=== PATIENT | male | born 1945 | race American Indian/Alaskan Native ===

== ENCOUNTER 2017-02-24 14:18 | Inpatient (IN) | payer MEDICARE ==
[2017-02-24 14:26] LABS: Basophils % (Auto) 0.8 % (0.0-1.8); Eosinophils % (Auto) 2.8 % (0.0-4.3); Hematocrit 45.6 % (35.5-45.6); Hemoglobin 15.5 gm/dl (11.8-15.2); Mean Corpuscular HGB Conc 34 % (32-34); Mean Corpuscular Hemoglobin 33 pg (28-32); Mean Corpuscular Volume 96 fl (84-94); Platelet Count 184 K/mm3 (140-440); Red Blood Count 4.77 M/mm3 (3.65-5.03); Red Cell Distribution Width 14.1 % (13.2-15.2); White Blood Count 6.4 K/mm3 (4.5-11.0)
[2017-02-24 14:34] LABS: INR 0.95 (0.87-1.13)
[2017-02-24 14:36] LABS: Anion Gap 19 mmol/L; BUN/Creatinine Ratio 18; Blood Urea Nitrogen 20 mg/dL (9-20); Calcium 8.5 mg/dL (8.4-10.2); Carbon Dioxide 25 mmol/L (22-30); Chloride 99.2 mmol/L (98-107); Glucose 183 mg/dL (75-100); Potassium 3.9 mmol/L (3.6-5.0); Sodium 139 mmol/L (137-145)
--- NOTE | 2017-02-24 14:40 | Cat Scan Report ---
FINAL REPORT EXAM: CT HEAD/BRAIN WO CON HISTORY: neuro deficits < 6hrs or sx present upon awakening TECHNIQUE: CT of the head was performed. No intravenous contrast was administered. PRIORS: None. FINDINGS: The left MCA appears slightly hyperdense which could represent acute MCA thrombus. Similarly the right posterior cerebral artery is hyperdense which could be thrombus. There is no hemorrhage, edema, mass effect or shift. There is moderate ischemic change in the white matter. There are old lacunar infarcts involving bilateral thalami and left basal ganglia. There are no abnormal extra-axial fluid collections. The ventricles are appropriate for brain volume. There is no skull fracture seen. There is partial ethmoid sinus opacification. There are small air-fluid levels in the maxillary sinus. Findings could reflect sinusitis. 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 Correlate clinically. Hyperdense vasculature can alternatively be seen in the setting of dehydration and hemoconcentration. Possible sinusitis. Findings were discussed with Dr. Hope on 02/24/2017 at 2:32 p.m. EST.
[2017-02-24] MEDS ORDERED: NORMODYNE IV ONE (14:41)
[2017-02-24] MEDS ORDERED: ASPIRIN PO ONE (14:46)
[2017-02-24] MEDS ORDERED: APRESOLINE IV ONE (16:15)
--- NOTE | 2017-02-24 16:25 | Emergency Department Report ---
ED Neuro Deficit HPI - General Chief Complaint: Neuro Symptoms/Deficit Stated Complaint: POSS STROKE Time Seen by Provider: 02/24/17 14:40 Source: patient, family, EMS Mode of arrival: Stretcher Limitations: No Limitations - History of Present Illness Initial Comments: Patient presents to this facility as a code stroke. He is quite clear that he was sitting on the porch at 10 AM when his symptoms began. Apparently the patient's became aware that 45 minutes prior to EMS actually show him. However the patient clearly did not tell his he was having symptoms up until this time. I verified this last known well time independently from the nurse who got the same information. -: hour(s) (now greater than 4-1/[address] completion) Location: left face, left arm, left leg Presenting Symptoms: Present: Weak/Paralyzed One Side History of same: No Place: home (states was sitting on the porch at 10 AM when this happened) Severity: moderate, severe Quality: weak, numb Improves With: none Worsens With: none On Anticoagulants: No Context: sudden onset Associated Symptoms: denies other symptoms Treatments Prior to Arrival: none - Related Data Allergies/Adverse Reactions: Allergies Allergy/AdvReac Type Severity Reaction Status Date / Time No Known Allergies Allergy Unverified 02/24/17 14:20 ED Review of Systems ROS: Stated complaint: POSS STROKE Other details as noted in HPI Constitutional: denies: chills, fever Eyes: denies: eye pain, eye discharge, vision change ENT: denies: ear pain, throat pain Respiratory: denies: cough, shortness of breath, wheezing Cardiovascular: denies: chest pain, palpitations Endocrine: no symptoms reported Gastrointestinal: denies: abdominal pain, nausea, diarrhea Genitourinary: denies: urgency, dysuria Musculoskeletal: denies: back pain, joint swelling, arthralgia Skin: denies: rash, lesions Neurological: as per HPI, weakness, numbness. denies: headache, paresthesias Psychiatric: denies: anxiety, depression Hematological/Lymphatic: denies: easy bleeding, easy bruising ED Past Medical Hx - Past Medical History Hx Hypertension: Yes (probably hasn't seen a physician in years) Additional medical history: High Cholestrol - Social History Smoking Status: Current Every Day Smoker Substance Use Type: Alcohol ED Neuro Physical Exam - General Limitations: No Limitations General appearance: alert, in no apparent distress Suspected Stroke: Yes - Head Head exam: Present: atraumatic, normocephalic - Eye Eye exam: Present: normal appearance. Absent: scleral icterus - ENT ENT exam: Present: normal exam, mucous membranes moist - Neck Neck exam: Present: normal inspection. Absent: tenderness, meningismus - Respiratory Respiratory exam: Present: normal lung sounds bilaterally. Absent: respiratory distress - Cardiovascular Cardiovascular Exam: Present: regular rate, normal rhythm. Absent: systolic murmur, diastolic murmur, rubs, gallop - GI/Abdominal GI/Abdominal exam: Present: soft, normal bowel sounds. Absent: distended, tenderness, guarding, rebound - Rectal Rectal exam: Present: deferred - Extremities Exam Extremities exam: Present: normal inspection - Back Exam Back exam: Present: normal inspection - Neurological Exam Neurological exam: Present: alert, oriented X3, motor sensory deficit (left hemiparesis upper extremity much greater than lower). Absent: CN II-XII intact (partial left facial paresis) - NIHSS Assessment Interval: Baseline 1a. Level of Consciousness: alert 1b. LOC Questions: answers correctly 1c. LOC Commands: performs tasks correctly 2. Best Gaze: normal 3. Visual: no visual loss 4. Facial Palsy: partial paralysis 5b. Motor Arm Right: no drift 5a. Motor Arm Left: drift 6a. Motor Leg Left: no drift (no drift but probably 4+ strength) 6b. Motor Leg Right: no drift 7. Limb Ataxia: absent 8. Sensory: mild/moderate sensory loss 9. Best Language: no aphasia 10. Dysarthria: mild/moderate dysarthria 11. Extinction/Inattention: no abnormality Total Score: 5 Stroke Severity: Moderate Stroke - Psychiatric Psychiatric exam: Present: normal affect, normal mood - Skin Skin exam: Present: warm, dry, intact, normal color. Absent: rash ED Course Vital Signs 02/24/17 02/24/17 02/24/17 14:25 14:48 15:00 Temperature 98.3 F Pulse Rate 83 78 73 Respiratory 18 Rate Blood Pressure 189/111 188/114 189/111 Blood Pressure [Left] O2 Sat by Pulse 99 97 Oximetry 02/24/17 02/24/17 02/24/17 15:15 15:29 15:30 Temperature Pulse Rate 72 78 80 Respiratory 14 18 16 Rate Blood Pressure 195/108 167/95 Blood Pressure 167/95 [Left] O2 Sat by Pulse 97 99 97 Oximetry 02/24/17 02/24/17 02/24/17 15:46 16:00 16:21 Temperature Pulse Rate 67 61 Respiratory 13 13 18 Rate Blood Pressure 182/98 167/108 Blood Pressure [Left] O2 Sat by Pulse 98 98 99 Oximetry - Reevaluation(s) Reevaluation #1: The patient is greater than 4.5 hours after the onset of his symptoms by the completion of his CT. He is outside the window for TPA. I discussed the patient's CT report with the radiologist. The CT findings are not correlating with his neurological presentation. He has some apparently non-correlating questionable hyperdensities. This is discussed with the hospitalist. The patient will be admitted for stroke workup to the hospitalist service. Additionally he has had his blood pressure gently titrated with small doses of labetalol. His blood pressure not been affected. He will be given a small dose of hydralazine. Further care per the hospitalist. 02/24/17 16:33 - Lab Data Result diagrams: 02/24/17 14:15 02/24/17 14:15 Lab Results 02/24/17 02/24/17 02/24/17 Range/Units 14:15 14:15 14:15 WBC 6.4 (4.5-11.0) K/mm3 RBC 4.77 (3.65-5.03) M/mm3 Hgb 15.5 H (11.8-15.2) gm/dl Hct 45.6 (35.5-45.6) % MCV 96 H (84-94) fl MCH 33 H (28-32) pg MCHC 34 (32-34) % RDW 14.1 (13.2-15.2) % Plt Count 184 (140-440) K/mm3 Lymph % (Auto) 50.6 H (13.4-35.0) % [place] % (Auto) 7.0 (0.0-7.3) % Eos % (Auto) 2.8 (0.0-4.3) % Baso % (Auto) 0.8 (0.0-1.8) % Lymph # 3.2 (1.2-5.4) K/mm3 [place] # 0.4 (0.0-0.8) K/mm3 Eos # 0.2 (0.0-0.4) K/mm3 Baso # 0.1 (0.0-0.1) K/mm3 Seg Neutrophils % 38.8 L (40.0-70.0) % Seg Neutrophils # 2.5 (1.8-7.7) K/mm3 PT 13.1 (12.2-14.9) Sec. INR 0.95 (0.87-1.13) APTT 33.0 (24.2-36.6) Sec. Thrombin Time (15.1-19.6) Sec. Sodium 139 (137-145) mmol/L Potassium 3.9 (3.6-5.0) mmol/L Chloride 99.2 (98-107) mmol/L Carbon Dioxide 25 (22-30) mmol/L Anion Gap 19 mmol/L BUN 20 (9-20) mg/dL Creatinine 1.1 (0.8-1.5) mg/dL Estimated GFR > 60 ml/min BUN/Creatinine Ratio 18 % Glucose 183 H (75-100) mg/dL Calcium 8.5 (8.4-10.2) mg/dL Total Bilirubin (0.1-1.2) mg/dL Direct Bilirubin (0-0.2) mg/dL Indirect Bilirubin mg/dL AST (5-40) units/L ALT (7-56) units/L Alkaline Phosphatase (35-129) units/L Troponin T < 0.010 (0.00-0.029) ng/mL NT-Pro-B Natriuret Pep (0-900) pg/mL Total Protein (6.3-8.2) g/dL Albumin (3.9-5) g/dL Albumin/Globulin Ratio % Urine Opiates Screen Urine Methadone Screen Ur Barbiturates Screen Ur Phencyclidine Scrn Ur Amphetamines Screen U Benzodiazepines Scrn Urine Cocaine Screen U Marijuana (THC) Screen Drugs of Abuse Note 02/24/17 02/24/17 02/24/17 Range/Units 14:15 14:15 16:17 WBC (4.5-11.0) K/mm3 RBC (3.65-5.03) M/mm3 Hgb (11.8-15.2) gm/dl Hct (35.5-45.6) % MCV (84-94) fl MCH (28-32) pg MCHC (32-34) % RDW (13.2-15.2) % Plt Count (140-440) K/mm3 Lymph % (Auto) (13.4-35.0) % [place] % (Auto) (0.0-7.3) % Eos % (Auto) (0.0-4.3) % Baso % (Auto) (0.0-1.8) % Lymph # (1.2-5.4) K/mm3 [place] # (0.0-0.8) K/mm3 Eos # (0.0-0.4) K/mm3 Baso # (0.0-0.1) K/mm3 Seg Neutrophils % (40.0-70.0) % Seg Neutrophils # (1.8-7.7) K/mm3 PT (12.2-14.9) Sec. INR (0.87-1.13) APTT (24.2-36.6) Sec. Thrombin Time 16.9 (15.1-19.6) Sec. Sodium (137-145) mmol/L Potassium (3.6-5.0) mmol/L Chloride (98-107) mmol/L Carbon Dioxide (22-30) mmol/L Anion Gap mmol/L BUN (9-20) mg/dL Creatinine (0.8-1.5) mg/dL Estimated GFR ml/min BUN/Creatinine Ratio % Glucose (75-100) mg/dL Calcium (8.4-10.2) mg/dL Total Bilirubin 0.30 (0.1-1.2) mg/dL Direct Bilirubin < 0.2 (0-0.2) mg/dL Indirect Bilirubin 0.1 mg/dL AST 22 (5-40) units/L ALT 25 (7-56) units/L Alkaline Phosphatase 89 (35-129) units/L Troponin T (0.00-0.029) ng/mL NT-Pro-B Natriuret Pep 13.01 (0-900) pg/mL Total Protein 7.8 (6.3-8.2) g/dL Albumin 4.3 (3.9-5) g/dL Albumin/Globulin Ratio 1.2 % Urine Opiates Screen Presumptive negative Urine Methadone Screen Presumptive negative Ur Barbiturates Screen Presumptive negative Ur Phencyclidine Scrn Presumptive negative Ur Amphetamines Screen Presumptive negative U Benzodiazepines Scrn Presumptive negative Urine Cocaine Screen Presumptive negative U Marijuana (THC) Screen Presumptive negative Drugs of Abuse Note Disclamer - EKG Data -: EKG Interpreted by Me EKG shows normal: sinus rhythm Rate: normal Interpretation: other (left anterior fascicular block branch block thereby bifascicular block likely associated repolarization abnormality.) - Radiology Data interpreted by me: CT of the head showed possible hyperdensity in the left MCA and 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 There is no acute parenchymal or chronic parenchymal disease. I believe these to be non-correlating findings. A chest x-ray showed some central venous fullness. Critical Care Time: Yes Critical care time in (mins) excluding proc time.: 60 Critical care attestation.: If time is entered above; I have spent that time in minutes in the direct care of this critically ill patient, excluding procedure time. ED Disposition Clinical Impression: Uncontrolled hypertension, Bifascicular block CVA (cerebral vascular accident) Qualifiers: CVA mechanism: unspecified Qualified Code(s): I63.9 - Cerebral infarction, unspecified Disposition: DC-09 OP ADMIT IP TO THIS HOSP Is pt being admited?: Yes Does the pt Need Aspirin: Yes Condition: Stable Instructions: Hypertension (ED) Time of Disposition: 17:04
[2017-02-24] MEDS ORDERED: REGLAN PO PRN (16:28)
[2017-02-24] MEDS ORDERED: MILK OF MAGNESIA PO PRN (16:28)
[2017-02-24] MEDS ORDERED: PHENERGAN PR PRN (16:28)
[2017-02-24] MEDS ORDERED: ZOFRAN IV PRN (16:28)
[2017-02-24] MEDS ORDERED: DULCOLAX PR PRN (16:28)
[2017-02-24] MEDS ORDERED: SODIUM CHLORIDE FLUSH SYRINGE 10 ML IV PRN (16:28)
--- NOTE | 2017-02-24 16:28 | History and Physical Report ---
History of Present Illness Chief complaint: Im weak on my left side doctor History of present illness: 71 YO Male with HLD, Nicotine Dependence presents to ED for evaluation. Pt states that he was sitting on his porch this morning when he experienced weakness on his left side. Pt states that he thought that he would be OK and did not tell anyone about his symptoms. After several hours, patient informed his of symptoms. EMS was subsequently called, and patient was found to have symptoms consistent with acute stroke. Pt transported to [facility] for evaluation. Pt seen and evaluated in ED and found to have facial droop, left hemiparesis. Pt was outside therapeutic window for TPA. Pt treated I[facility] stroke protocol and admitted to telemetry. Pt treated [facility] DAPT. No reports of fever, chills, trauma, CP, palpitations, leg swelling/calf pain, prolonged travel/ immobility, Individual/family history of DVT/PE, Vertigo, Migraine, Skin rash, neck pain, or recent ill contacts. Past History Past Medical History: hyperlipidemia, other (Nicotine Dependence) Past Surgical History: No surgical history, Other (reviewed) Social history: , lives with family, smoking. denies: alcohol abuse, prescription drug abuse, IV drug use Family history: hypertension Medications and Allergies Allergies Allergy/AdvReac Type Severity Reaction Status Date / Time No Known Allergies Allergy Unverified 02/24/17 14:20 Review of Systems Constitutional: no weight loss, no weight gain, no fever, no chills Ears, nose, mouth and throat: no ear pain, no ear discharge, no tinnitis, no decreased hearing, no nose pain, no nasal congestion Cardiovascular: no chest pain, no orthopnea, no palpitations, no rapid/ irregular heart beat, no edema, no syncope Respiratory: no cough, no cough with sputum, no excessive sputum, no hemoptysis Gastrointestinal: no abdominal pain, no nausea, no vomiting, no diarrhea, no constipation Genitourinary Male: no dysuria, no flank pain, no discharge, no urinary frequency, no urinary hesitancy Rectal: no pain, no incontinence, no bleeding Musculoskeletal: no neck stiffness, no neck pain, no shooting arm pain, no arm numbness/tingling, no low back pain Integumentary: no rash, no pruritis, no redness, no sores, no wounds Neurological: transient paralysis, weakness, change in speech, motor disturbance , no head injury, no paralysis, no parathesias, no numbness, no vertigo, no headaches, no migraines Psychiatric: no anxiety, no memory loss, no change in sleep habits, no sleep disturbances, no insomnia, no hypersomnia, no change in appetite Endocrine: no cold intolerance, no heat intolerance, no polyphagia, no excessive thirst, no polydipsia, no polyuria Hematologic/Lymphatic: no easy bruising, no easy bleeding Allergic/Immunologic: no urticaria, no allergic rhinitis, no wheezing Exam - Constitutional Vitals: Temp Pulse Resp BP Pulse Ox 98.3 F 61 18 167/108 99 02/24/17 14:25 02/24/17 16:00 02/24/17 16:21 02/24/17 16:00 02/24/17 16:21 General appearance: Present: mild distress - EENT Eyes: Present: PERRL ENT: hearing intact, clear oral mucosa - Neck Neck: Present: supple, normal ROM - Respiratory Respiratory effort: normal Respiratory: bilateral: CTA - Cardiovascular Heart Sounds: Present: S1 & S2. Absent: rub, click - Extremities Extremities: pulses symmetrical, No edema Peripheral Pulses: within normal limits - Abdominal General gastrointestinal: Present: soft, non-tender, non-distended, normal bowel sounds Male genitourinary: Present: normal - Rectal Rectal Exam: normal exam-external/orifice - Integumentary Integumentary: Present: clear, warm, dry - Musculoskeletal Musculoskeletal: left sided weakness - Psychiatric Psychiatric: appropriate mood/affect, intact judgment & insight - Neurologic Neurologic: focal deficits, no gait normal Results - Labs CBC & Chem 7: 02/24/17 14:15 02/24/17 14:15 Labs: Abnormal lab results 02/24/17 02/24/17 Range/Units 14:15 14:15 Hgb 15.5 H (11.8-15.2) gm/dl MCV 96 H (84-94) fl MCH 33 H (28-32) pg Lymph % (Auto) 50.6 H (13.4-35.0) % Seg Neutrophils % 38.8 L (40.0-70.0) % Glucose 183 H (75-100) mg/dL Assessment and Plan - Patient Problems (1) CVA (cerebral vascular accident) Current Visit: Yes Status: Acute Qualifiers: CVA mechanism: unspecified Qualified Code(s): I63.9 - Cerebral infarction, unspecified Plan to address problem: Stroke Protocol: CT head, MRI Brain, MRA Brain, Echo, Carotid Doppler, DAPT, Lipid panel, Statin therapy, PT/OT, Speech Therapy, Swallow evaluation, (2) Left hemiparesis Current Visit: Yes Status: Acute Plan to address problem: PT consulted, (3) Nicotine dependence Current Visit: Yes Status: Acute Plan to address problem: Pt counseled, Pt refused to pick quit date. (4) HLD (hyperlipidemia) Current Visit: Yes Status: Acute Plan to address problem: Lipid panel, statin therapy as indicated, (5) Accelerated hypertension Current Visit: Yes Status: Acute Plan to address problem: Permissive hypertension overnight, secondary to acute CVA. (6) DVT prophylaxis Current Visit: Yes Status: Acute
[2017-02-24 16:34] LABS: Urine Drugs of Abuse Note Disclamer
[2017-02-24] MEDS ORDERED: MOTRIN ONE (16:37)
--- NOTE | 2017-02-24 16:46 | XRay Report ---
FINAL REPORT EXAM: XR CHEST 1V AP HISTORY: hypertension TECHNIQUE: upright single view chest PRIORS: None. FINDINGS: Cardiac and mediastinal contours are unremarkable. No focal pulmonary infiltrate is identified. No pleural fluid collection seen. Pulmonary vasculature is unremarkable. IMPRESSION: Negative single-view chest
[2017-02-24 16:50] LABS: Alanine Aminotransferase 25 units/L (7-56); Albumin 4.3 g/dL (3.9-5); Albumin/Globulin Ratio 1.2 %; Alkaline Phosphatase 89 units/L (35-129); Total Protein 7.8 g/dL (6.3-8.2)
[2017-02-24 16:52] LABS: Bilirubin,Direct < 0.2 mg/dL (0-0.2); Bilirubin,Indirect 0.1 mg/dL
[2017-02-24 17:01] LABS: Bacteria,Urine 1+ /HPF (Negative); Bilirubin,Urine NEG (Negative); Blood,Urine NEG (Negative); Ketones,Urine NEG (Negative); Leukocyte Esterase,Urine NEG (Negative); Mucus,Urine FEW /HPF; Nitrite,Urine NEG (Negative); Protein,Urine <15 mg/dL mg/dL (Negative); Urobilinogen,Urine < 2.0 mg/dL (<2.0); WBC,Urine < 1.0 /HPF (0.0-6.0)
[2017-02-24] MEDS ORDERED: MORPHINE IV ONE (18:08)
[2017-02-24] MEDS ORDERED: PERCOCET 5/325 PO PRN (18:09)
[2017-02-24] MEDS ORDERED: MORPHINE ONE (18:11)
[2017-02-25] MEDS ORDERED: APRESOLINE IV ONE (09:00)
[2017-02-25] MEDS: PLAVIX PO SCH (09:11)
--- NOTE | 2017-02-25 09:13 | Progress Note ---
Assessment and Plan Assessment and plan: --Acute CVA Patient's symptoms significantly improved, follow neuro workup Physical therapy occupational therapy speech therapy, rehabilitation and as needed --CVA with left weakness Mild improvement, physical therapy occupational therapy, follow neuro workup --Malignant hypertension; closely monitor blood pressures Permissive hypertension per CVA protocol, when necessary hydralazine --Dyslipidemia; continue statin, low cholesterol diet --Ongoing tobacco use; smoking cessation counseling done advised nicotine patch if needed --DVT prophylaxis with Lovenox Follow neuro workup, consider neurology evaluation if needed Plan of care discussed with the patient and the family member at the bedside History Interval history: Patient seen and examined medical records reviewed Admitted with CVA-like symptoms Neuro workup is in progress Patient alert awake oriented 3 not in acute distress Hospitalist Physical - Constitutional Vitals: Temp Pulse Resp BP Pulse Ox 98.4 F 76 20 209/106 95 02/25/17 08:49 02/25/17 08:49 02/25/17 08:49 02/25/17 08:49 02/25/17 08:49 General appearance: Present: no acute distress, well-nourished, other - EENT Eyes: Present: PERRL, EOM intact - Neck Neck: Present: supple, normal ROM - Respiratory Respiratory effort: normal Respiratory: bilateral: diminished, negative: rales, rhonchi, wheezing - Cardiovascular Rhythm: regular Heart Sounds: Present: S1 & S2 - Extremities Extremities: no ischemia, No edema - Abdominal General gastrointestinal: soft, non-tender, non-distended, normal bowel sounds - Integumentary Integumentary: Present: clear, warm - Psychiatric Psychiatric: appropriate mood/affect, cooperative - Neurologic Neurologic: other (Gen. weakness) Results - Labs CBC & Chem 7: 02/24/17 14:15 02/24/17 14:15 Labs: Laboratory Last Values WBC 6.4 K/mm3 (4.5-11.0) 02/24/17 14:15 RBC 4.77 M/mm3 (3.65-5.03) 02/24/17 14:15 Hgb 15.5 gm/dl (11.8-15.2) H 02/24/17 14:15 Hct 45.6 % (35.5-45.6) 02/24/17 14:15 MCV 96 fl (84-94) H 02/24/17 14:15 MCH 33 pg (28-32) H 02/24/17 14:15 MCHC 34 % (32-34) 02/24/17 14:15 RDW 14.1 % (13.2-15.2) 02/24/17 14:15 Plt Count 184 K/mm3 (140-440) 02/24/17 14:15 Lymph % (Auto) 50.6 % (13.4-35.0) H 02/24/17 14:15 [place] % (Auto) 7.0 % (0.0-7.3) 02/24/17 14:15 Eos % (Auto) 2.8 % (0.0-4.3) 02/24/17 14:15 Baso % (Auto) 0.8 % (0.0-1.8) 02/24/17 14:15 Lymph # 3.2 K/mm3 (1.2-5.4) 02/24/17 14:15 [place] # 0.4 K/mm3 (0.0-0.8) 02/24/17 14:15 Eos # 0.2 K/mm3 (0.0-0.4) 02/24/17 14:15 Baso # 0.1 K/mm3 (0.0-0.1) 02/24/17 14:15 Seg Neutrophils % 38.8 % (40.0-70.0) L 02/24/17 14:15 Seg Neutrophils # 2.5 K/mm3 (1.8-7.7) 02/24/17 14:15 PT 13.1 Sec. (12.2-14.9) 02/24/17 14:15 INR 0.95 (0.87-1.13) 02/24/17 14:15 APTT 33.0 Sec. (24.2-36.6) 02/24/17 14:15 Thrombin Time 16.9 Sec. (15.1-19.6) 02/24/17 14:15 Sodium 139 mmol/L (137-145) 02/24/17 14:15 Potassium 3.9 mmol/L (3.6-5.0) 02/24/17 14:15 Chloride 99.2 mmol/L (98-107) 02/24/17 14:15 Carbon Dioxide 25 mmol/L (22-30) 02/24/17 14:15 Anion Gap 19 mmol/L 02/24/17 14:15 BUN 20 mg/dL (9-20) 02/24/17 14:15 Creatinine 1.1 mg/dL (0.8-1.5) 02/24/17 14:15 Estimated GFR > 60 ml/min 02/24/17 14:15 BUN/Creatinine Ratio 18 % 02/24/17 14:15 Glucose 183 mg/dL (75-100) H 02/24/17 14:15 POC Glucose 101 (70-105) 02/24/17 21:37 Calcium 8.5 mg/dL (8.4-10.2) 02/24/17 14:15 Total Bilirubin 0.30 mg/dL (0.1-1.2) 02/24/17 14:15 Direct Bilirubin < 0.2 mg/dL (0-0.2) 02/24/17 14:15 Indirect Bilirubin 0.1 mg/dL 02/24/17 14:15 AST 22 units/L (5-40) 02/24/17 14:15 ALT 25 units/L (7-56) 02/24/17 14:15 Alkaline Phosphatase 89 units/L (35-129) 02/24/17 14:15 Troponin T < 0.010 ng/mL (0.00-0.029) 02/24/17 14:15 NT-Pro-B Natriuret Pep 13.01 pg/mL (0-900) 02/24/17 14:15 Total Protein 7.8 g/dL (6.3-8.2) 02/24/17 14:15 Albumin 4.3 g/dL (3.9-5) 02/24/17 14:15 Albumin/Globulin Ratio 1.2 % 02/24/17 14:15 Triglycerides 158 mg/dL (2-149) H 02/25/17 04:39 Cholesterol 233 mg/dL (50-199) H 02/25/17 04:39 LDL Cholesterol Direct 159 mg/dL (50-130) H 02/25/17 04:39 HDL Cholesterol 43 mg/dL (40-59) 02/25/17 04:39 Cholesterol/HDL Ratio 5.41 % 02/25/17 04:39 Urine Color Yellow (Yellow) 12/10/17 16:17 Urine Turbidity Clear (Clear) 02/24/17 16:17 Urine pH 5.0 (5.0-7.0) 02/24/17 16:17 Ur Specific [place] 1.019 (1.003-1.030) 02/24/17 16:17 Urine Protein <15 mg/dl mg/dL (Negative) 02/24/17 16:17 Urine Glucose (UA) Neg mg/dL (Negative) 02/24/17 16:17 Urine Ketones Neg mg/dL (Negative) 02/24/17 16:17 Urine Blood Neg (Negative) 02/24/17 16:17 Urine Nitrite Neg (Negative) 02/24/17 16:17 Urine Bilirubin Neg (Negative) 02/24/17 16:17 Urine Urobilinogen < 2.0 mg/dL (<2.0) 02/24/17 16:17 Ur Leukocyte Esterase Neg (Negative) 02/24/17 16:17 Urine WBC (Auto) < 1.0 /HPF (0.0-6.0) 02/24/17 16:17 Urine RBC (Auto) 1.0 /HPF (0.0-6.0) 02/24/17 16:17 U Epithel Cells (Auto) < 1.0 /HPF (0-13.0) 02/24/17 16:17 Urine Bacteria (Auto) 1+ /HPF (Negative) 02/24/17 16:17 Urine Mucus Few /HPF 02/24/17 16:17 Urine Opiates Screen Presumptive negative 02/24/17 16:17 Urine Methadone Screen Presumptive negative 02/24/17 16:17 Ur Barbiturates Screen Presumptive negative 02/24/17 16:17 Ur Phencyclidine Scrn Presumptive negative 02/24/17 16:17 Ur Amphetamines Screen Presumptive negative 02/24/17 16:17 U Benzodiazepines Scrn Presumptive negative 02/24/17 16:17 Urine Cocaine Screen Presumptive negative 02/24/17 16:17 U Marijuana (THC) Screen Presumptive negative 02/24/17 16:17 Drugs of Abuse Note Disclamer 02/24/17 16:17
[2017-02-25] MEDS: AUGMENTIN 875 MG PO SCH ×2 (09:19→21:00)
[2017-02-25] MEDS ORDERED: PNEUMOVAX 23 IM ONE (12:00)
[2017-02-25] MEDS: APRESOLINE PO SCH ×2 (15:15→21:00)
[2017-02-25] MEDS: APRESOLINE IV PRN (15:20)
[2017-02-25] MEDS: TYLENOL PO PRN (20:57)
[2017-02-26] MEDS: APRESOLINE IV PRN (01:54)
[2017-02-26] MEDS: APRESOLINE PO SCH ×3 (05:42→22:55)
--- NOTE | 2017-02-26 10:14 | Progress Note ---
Assessment and Plan Assessment and plan: --Acute CVA CT head without contrast; left MCA right OBEDIENCE TRAINER is somewhat hypodense possible acute thrombus Echocardiogram ; LV ejection fraction 55-60% , mild concentric LVH Carotid Doppler ; no hemodynamically significant stenosis , less than 50% stenosis noted MRI brain; acute/subacute nonhemorrhagic infarct involving right occipital lobe , Thalamus ,inferior left cerebellum ,minimal mass effect and no hemorrhage MRA; brain; high-grade stenosis right OBEDIENCE TRAINER Patient's symptoms significantly improved, neurology consultation Continue antiplatelets and statins Physical therapy occupational therapy speech therapy, acute versus subacute rehabilitation as needed --CVA with left weakness Mild improvement, physical therapy occupational therapy, follow neuro workup --Sinusitis; continue Augmentin, supportive care --Malignant hypertension; closely monitor blood pressures Permissive hypertension per CVA protocol, when necessary hydralazine --Dyslipidemia; continue statin, low cholesterol diet --Ongoing tobacco use; smoking cessation counseling done advised nicotine patch if needed --DVT prophylaxis with Lovenox --DC planning. Case management [patient is from [facility], will be returning when medically stable] Closely monitor the patient and adjust management as needed History Interval history: Patient seen and examined medical records reviewed Face slightly better still has left-sided weakness Completed neuro workup, underwent MRI/MRA brain Images reviewed Hospitalist Physical - Constitutional Vitals: Temp Pulse Resp BP Pulse Ox 99.1 F 80 20 146/85 95 02/26/17 08:09 02/26/17 08:09 02/26/17 08:09 02/26/17 08:09 02/26/17 08:09 General appearance: Present: no acute distress, well-nourished, other - EENT Eyes: Present: PERRL, EOM intact - Neck Neck: Present: supple, normal ROM - Respiratory Respiratory effort: normal Respiratory: bilateral: diminished, negative: rales, rhonchi, wheezing - Cardiovascular Rhythm: regular Heart Sounds: Present: S1 & S2 - Extremities Extremities: no ischemia, No edema - Abdominal General gastrointestinal: soft, non-tender, non-distended, normal bowel sounds - Integumentary Integumentary: Present: clear, warm - Psychiatric Psychiatric: appropriate mood/affect, cooperative - Neurologic Neurologic: other (acute CVA with left-sided weakness) Results - Labs CBC & Chem 7: 02/24/17 14:15 02/24/17 14:15 Labs: Laboratory Last Values WBC 6.4 K/mm3 (4.5-11.0) 02/24/17 14:15 RBC 4.77 M/mm3 (3.65-5.03) 02/24/17 14:15 Hgb 15.5 gm/dl (11.8-15.2) H 02/24/17 14:15 Hct 45.6 % (35.5-45.6) 02/24/17 14:15 MCV 96 fl (84-94) H 02/24/17 14:15 MCH 33 pg (28-32) H 02/24/17 14:15 MCHC 34 % (32-34) 02/24/17 14:15 RDW 14.1 % (13.2-15.2) 02/24/17 14:15 Plt Count 184 K/mm3 (140-440) 02/24/17 14:15 Lymph % (Auto) 50.6 % (13.4-35.0) H 02/24/17 14:15 [place] % (Auto) 7.0 % (0.0-7.3) 02/24/17 14:15 Eos % (Auto) 2.8 % (0.0-4.3) 02/24/17 14:15 Baso % (Auto) 0.8 % (0.0-1.8) 02/24/17 14:15 Lymph # 3.2 K/mm3 (1.2-5.4) 02/24/17 14:15 [place] # 0.4 K/mm3 (0.0-0.8) 02/24/17 14:15 Eos # 0.2 K/mm3 (0.0-0.4) 02/24/17 14:15 Baso # 0.1 K/mm3 (0.0-0.1) 02/24/17 14:15 Seg Neutrophils % 38.8 % (40.0-70.0) L 02/24/17 14:15 Seg Neutrophils # 2.5 K/mm3 (1.8-7.7) 02/24/17 14:15 PT 13.1 Sec. (12.2-14.9) 02/24/17 14:15 INR 0.95 (0.87-1.13) 02/24/17 14:15 APTT 33.0 Sec. (24.2-36.6) 02/24/17 14:15 Thrombin Time 16.9 Sec. (15.1-19.6) 02/24/17 14:15 Sodium 139 mmol/L (137-145) 02/24/17 14:15 Potassium 3.9 mmol/L (3.6-5.0) 02/24/17 14:15 Chloride 99.2 mmol/L (98-107) 02/24/17 14:15 Carbon Dioxide 25 mmol/L (22-30) 02/24/17 14:15 Anion Gap 19 mmol/L 02/24/17 14:15 BUN 20 mg/dL (9-20) 02/24/17 14:15 Creatinine 1.1 mg/dL (0.8-1.5) 02/24/17 14:15 Estimated GFR > 60 ml/min 02/24/17 14:15 BUN/Creatinine Ratio 18 % 02/24/17 14:15 Glucose 183 mg/dL (75-100) H 02/24/17 14:15 POC Glucose 91 (70-105) 02/25/17 04:50 Calcium 8.5 mg/dL (8.4-10.2) 02/24/17 14:15 Total Bilirubin 0.30 mg/dL (0.1-1.2) 02/24/17 14:15 Direct Bilirubin < 0.2 mg/dL (0-0.2) 02/24/17 14:15 Indirect Bilirubin 0.1 mg/dL 02/24/17 14:15 AST 22 units/L (5-40) 02/24/17 14:15 ALT 25 units/L (7-56) 02/24/17 14:15 Alkaline Phosphatase 89 units/L (35-129) 02/24/17 14:15 Troponin T < 0.010 ng/mL (0.00-0.029) 02/24/17 14:15 NT-Pro-B Natriuret Pep 13.01 pg/mL (0-900) 02/24/17 14:15 Total Protein 7.8 g/dL (6.3-8.2) 02/24/17 14:15 Albumin 4.3 g/dL (3.9-5) 02/24/17 14:15 Albumin/Globulin Ratio 1.2 % 02/24/17 14:15 Triglycerides 158 mg/dL (2-149) H 02/25/17 04:39 Cholesterol 233 mg/dL (50-199) H 02/25/17 04:39 LDL Cholesterol Direct 159 mg/dL (50-130) H 02/25/17 04:39 HDL Cholesterol 43 mg/dL (40-59) 02/25/17 04:39 Cholesterol/HDL Ratio 5.41 % 02/25/17 04:39 Urine Color Yellow (Yellow) 02/24/17 16:17 Urine Turbidity Clear (Clear) 02/24/17 16:17 Urine pH 5.0 (5.0-7.0) 02/24/17 16:17 Ur Specific [place] 1.019 (1.003-1.030) 02/24/17 16:17 Urine Protein <15 mg/dl mg/dL (Negative) 02/24/17 16:17 Urine Glucose (UA) Neg mg/dL (Negative) 02/24/17 16:17 Urine Ketones Neg mg/dL (Negative) 02/24/17 16:17 Urine Blood Neg (Negative) 02/24/17 16:17 Urine Nitrite Neg (Negative) 02/24/17 16:17 Urine Bilirubin Neg (Negative) 02/24/17 16:17 Urine Urobilinogen < 2.0 mg/dL (<2.0) 02/24/17 16:17 Ur Leukocyte Esterase Neg (Negative) 02/24/17 16:17 Urine WBC (Auto) < 1.0 /HPF (0.0-6.0) 02/24/17 16:17 Urine RBC (Auto) 1.0 /HPF (0.0-6.0) 02/24/17 16:17 U Epithel Cells (Auto) < 1.0 /HPF (0-13.0) 02/24/17 16:17 Urine Bacteria (Auto) 1+ /HPF (Negative) 02/24/17 16:17 Urine Mucus Few /HPF 02/24/17 16:17 Urine Opiates Screen Presumptive negative 02/24/17 16:17 Urine Methadone Screen Presumptive negative 02/24/17 16:17 Ur Barbiturates Screen Presumptive negative 02/24/17 16:17 Ur Phencyclidine Scrn Presumptive negative 02/24/17 16:17 Ur Amphetamines Screen Presumptive negative 02/24/17 16:17 U Benzodiazepines Scrn Presumptive negative 02/24/17 16:17 Urine Cocaine Screen Presumptive negative 02/24/17 16:17 U Marijuana (THC) Screen Presumptive negative 02/24/17 16:17 Drugs of Abuse Note Disclamer 02/24/17 16:17
[2017-02-26] MEDS: AUGMENTIN 875 MG PO SCH ×2 (10:18→22:56)
[2017-02-26] MEDS: PLAVIX PO SCH (10:18)
[2017-02-26] MEDS ORDERED: ATIVAN IM STA (10:45)
[2017-02-26] MEDS ORDERED: ATIVAN IV STA (10:46)
--- NOTE | 2017-02-26 13:28 | Magnetic Resonance Report ---
MRI BRAIN WITHOUT CONTRAST: 02/24/17 16:28:00 CLINICAL: Stroke. TECHNIQUE: Axial diffusion, T1, T2, FLAIR, gradient echo T2*, and sagittal T1 sequences on a 1.5 Jania magnet. FINDINGS: The ventricles and sulci are normal for age. Multifocal restricted diffusion. Restricted diffusion involves almost the entire right occipital lobe. Focal restricted diffusion in the right thalamus and multifocal restricted diffusion in the left inferior cerebellum. Mild mass effect and no hemorrhage. No extra-axial collection. Extensive bilateral multifocal periventricular and subcortical white matter hyperintensities FLAIR and T2. The brainstem is normal. Normal pituitary and optic chiasm. Absent right TECHNICAL DATA ANALYST flow void. Bilateral ethmoid and maxillary sinusitis. There is an air-fluid level in the left maxillary sinus. The orbits, and soft tissues are normal. Normal calvarium and skull base. IMPRESSION: Acute/subacute nonhemorrhagic infarcts involving the right occipital lobe, right thalamus and inferior left cerebellum. Minimal mass effect and no hemorrhage. Chronic white matter microangiopathy.
--- NOTE | 2017-02-26 14:24 | Magnetic Resonance Report ---
MRA HEAD WITHOUT CONTRAST: 02/26/17 CLINICAL: Stroke. TECHNIQUE: Axial 3-D [id number] MR angiography of the [place] of [place] with review of axial source images. FINDINGS: High-grade stenosis in the right STUDENT FINANCIAL AID MANAGER correlates with a large right STUDENT FINANCIAL AID MANAGER infarct on MRI. No other stenoses and occlusions. No aneurysm. The [place] of [place] is intact. The basilar and vertebral arteries are intact. IMPRESSION: High-grade right STUDENT FINANCIAL AID MANAGER stenosis. Otherwise negative.
[2017-02-27] MEDS: APRESOLINE PO SCH ×3 (06:24→20:46)
--- NOTE | 2017-02-27 08:24 | Progress Note ---
Assessment and Plan Assessment and plan: --Acute CVA CT head without contrast; left MCA right MECHANIC INSULATOR is somewhat hypodense possible acute thrombus Echocardiogram ; LV ejection fraction 55-60% , mild concentric LVH Carotid Doppler ; no hemodynamically significant stenosis , less than 50% stenosis noted MRI brain; acute/subacute nonhemorrhagic infarct involving right occipital lobe , Thalamus ,inferior left cerebellum ,minimal mass effect and no hemorrhage MRA; brain; high-grade stenosis right MECHANIC INSULATOR Patient's symptoms significantly improved, neurology consultation Continue antiplatelets and statins Physical therapy occupational therapy speech therapy, acute versus subacute rehabilitation as needed --CVA with left weakness Mild improvement, physical therapy occupational therapy, follow neuro workup --Sinusitis; continue Augmentin, supportive care --Malignant hypertension; closely monitor blood pressures Permissive hypertension per CVA protocol, when necessary hydralazine --Dyslipidemia; continue statin, low cholesterol diet --Ongoing tobacco use; smoking cessation counseling done advised nicotine patch if needed --DVT prophylaxis with Lovenox --DC planning. Case management [patient is from [facility], will be returning when medically stable] Closely monitor the patient and adjust management as needed Hospitalist Physical - Constitutional Vitals: Temp Pulse Resp BP Pulse Ox 99.0 F 75 20 144/89 96 02/27/17 04:24 02/27/17 04:24 02/27/17 05:22 02/27/17 06:24 02/27/17 04:24 General appearance: Present: no acute distress, well-nourished, other Results - Labs CBC & Chem 7: 02/24/17 14:15 02/24/17 14:15 Labs: Laboratory Last Values WBC 6.4 K/mm3 (4.5-11.0) 02/24/17 14:15 RBC 4.77 M/mm3 (3.65-5.03) 02/24/17 14:15 Hgb 15.5 gm/dl (11.8-15.2) H 02/24/17 14:15 Hct 45.6 % (35.5-45.6) 02/24/17 14:15 MCV 96 fl (84-94) H 02/24/17 14:15 MCH 33 pg (28-32) H 02/24/17 14:15 MCHC 34 % (32-34) 02/24/17 14:15 RDW 14.1 % (13.2-15.2) 02/24/17 14:15 Plt Count 184 K/mm3 (140-440) 02/24/17 14:15 Lymph % (Auto) 50.6 % (13.4-35.0) H 02/24/17 14:15 [place] % (Auto) 7.0 % (0.0-7.3) 02/24/17 14:15 Eos % (Auto) 2.8 % (0.0-4.3) 02/24/17 14:15 Baso % (Auto) 0.8 % (0.0-1.8) 02/24/17 14:15 Lymph # 3.2 K/mm3 (1.2-5.4) 02/24/17 14:15 [place] # 0.4 K/mm3 (0.0-0.8) 02/24/17 14:15 Eos # 0.2 K/mm3 (0.0-0.4) 02/24/17 14:15 Baso # 0.1 K/mm3 (0.0-0.1) 02/24/17 14:15 Seg Neutrophils % 38.8 % (40.0-70.0) L 02/24/17 14:15 Seg Neutrophils # 2.5 K/mm3 (1.8-7.7) 02/24/17 14:15 PT 13.1 Sec. (12.2-14.9) 02/24/17 14:15 INR 0.95 (0.87-1.13) 02/24/17 14:15 APTT 33.0 Sec. (24.2-36.6) 02/24/17 14:15 Thrombin Time 16.9 Sec. (15.1-19.6) 02/24/17 14:15 Sodium 139 mmol/L (137-145) 02/24/17 14:15 Potassium 3.9 mmol/L (3.6-5.0) 02/24/17 14:15 Chloride 99.2 mmol/L (98-107) 02/24/17 14:15 Carbon Dioxide 25 mmol/L (22-30) 02/24/17 14:15 Anion Gap 19 mmol/L 02/24/17 14:15 BUN 20 mg/dL (9-20) 02/24/17 14:15 Creatinine 1.1 mg/dL (0.8-1.5) 02/24/17 14:15 Estimated GFR > 60 ml/min 02/24/17 14:15 BUN/Creatinine Ratio 18 % 02/24/17 14:15 Glucose 183 mg/dL (75-100) H 02/24/17 14:15 POC Glucose 91 (70-105) 02/25/17 04:50 Calcium 8.5 mg/dL (8.4-10.2) 02/24/17 14:15 Total Bilirubin 0.30 mg/dL (0.1-1.2) 02/24/17 14:15 Direct Bilirubin < 0.2 mg/dL (0-0.2) 02/24/17 14:15 Indirect Bilirubin 0.1 mg/dL 02/24/17 14:15 AST 22 units/L (5-40) 02/24/17 14:15 ALT 25 units/L (7-56) 02/24/17 14:15 Alkaline Phosphatase 89 units/L (35-129) 02/24/17 14:15 Troponin T < 0.010 ng/mL (0.00-0.029) 02/24/17 14:15 NT-Pro-B Natriuret Pep 13.01 pg/mL (0-900) 02/24/17 14:15 Total Protein 7.8 g/dL (6.3-8.2) 02/24/17 14:15 Albumin 4.3 g/dL (3.9-5) 02/24/17 14:15 Albumin/Globulin Ratio 1.2 % 02/24/17 14:15 Triglycerides 158 mg/dL (2-149) H 02/25/17 04:39 Cholesterol 233 mg/dL (50-199) H 02/25/17 04:39 LDL Cholesterol Direct 159 mg/dL (50-130) H 02/25/17 04:39 HDL Cholesterol 43 mg/dL (40-59) 02/25/17 04:39 Cholesterol/HDL Ratio 5.41 % 02/25/17 04:39 Urine Color Yellow (Yellow) 02/24/17 16:17 Urine Turbidity Clear (Clear) 02/24/17 16:17 Urine pH 5.0 (5.0-7.0) 02/24/17 16:17 Ur Specific [place] 1.019 (1.003-1.030) 02/24/17 16:17 Urine Protein <15 mg/dl mg/dL (Negative) 02/24/17 16:17 Urine Glucose (UA) Neg mg/dL (Negative) 02/24/17 16:17 Urine Ketones Neg mg/dL (Negative) 02/24/17 16:17 Urine Blood Neg (Negative) 02/24/17 16:17 Urine Nitrite Neg (Negative) 02/24/17 16:17 Urine Bilirubin Neg (Negative) 02/24/17 16:17 Urine Urobilinogen < 2.0 mg/dL (<2.0) 02/24/17 16:17 Ur Leukocyte Esterase Neg (Negative) 02/24/17 16:17 Urine WBC (Auto) < 1.0 /HPF (0.0-6.0) 02/24/17 16:17 Urine RBC (Auto) 1.0 /HPF (0.0-6.0) 02/24/17 16:17 U Epithel Cells (Auto) < 1.0 /HPF (0-13.0) 02/24/17 16:17 Urine Bacteria (Auto) 1+ /HPF (Negative) 02/24/17 16:17 Urine Mucus Few /HPF 02/24/17 16:17 Urine Opiates Screen Presumptive negative 02/24/17 16:17 Urine Methadone Screen Presumptive negative 02/24/17 16:17 Ur Barbiturates Screen Presumptive negative 02/24/17 16:17 Ur Phencyclidine Scrn Presumptive negative 02/24/17 16:17 Ur Amphetamines Screen Presumptive negative 02/24/17 16:17 U Benzodiazepines Scrn Presumptive negative 02/24/17 16:17 Urine Cocaine Screen Presumptive negative 02/24/17 16:17 U Marijuana (THC) Screen Presumptive negative 02/24/17 16:17 Drugs of Abuse Note Disclamer 02/24/17 16:17
--- NOTE | 2017-02-27 09:17 | Consultation ---
History of Present Illness Consult date: 02/27/17 History of present illness: went over the hx and the imaging studies- basically what we have is right posterior communicating artery high grade stenosis- artery is patent and not totally occluded but a high grade stenosis.... the ischemic infarct is definitely in the territory of the artery lesion and is not a hemorrhage medical thrapy is the recommendation aspirin / high dose statin and BP control I will look over the other testing Past History Past Medical History: hyperlipidemia, other (Nicotine Dependence) Past Surgical History: No surgical history, Other (reviewed) Social history: , lives with family, smoking. denies: alcohol abuse, prescription drug abuse, IV drug use Family history: hypertension Medications and Allergies Allergies Allergy/AdvReac Type Severity Reaction Status Date / Time No Known Allergies Allergy Unverified 02/24/17 14:20 Home Medications Medication Instructions Recorded Confirmed Last Taken Type No Known Home Medications [No 02/25/17 02/25/17 Unknown History Reported Home Medications] Active Meds: Active Medications Acetaminophen (Tylenol) 650 mg PO Q4H PRN PRN Reason: Pain, Mild (1-3) Last Admin: 02/25/17 20:57 Dose: 650 mg Amoxicillin/Clavulanate Potassium (Augmentin 875 Mg) 1 each PO Q12HR [facility] Last Admin: 02/26/17 22:56 Dose: 1 each Atorvastatin Calcium (Lipitor) 40 mg PO QHS [facility]LLEN Last Admin: 02/26/17 22:56 Dose: 40 mg Bisacodyl (Dulcolax) 10 mg [place] QDAY PRN PRN Reason: Constipation Clopidogrel Bisulfate (Plavix) 75 mg PO QDAY [facility] Last Admin: 02/26/17 10:18 Dose: 75 mg Hydralazine HCl (Apresoline) 25 mg PO Q8HR HELLEN Last Admin: 02/27/17 06:24 Dose: 25 mg Hydralazine HCl (Apresoline) 10 mg IV Q4HR PRN PRN Reason: Hypertension Last Admin: 02/26/17 01:54 Dose: 10 mg Magnesium Hydroxide (Milk Of Magnesia) 30 ml PO Q4H PRN PRN Reason: Constipation Metoclopramide HCl (Reglan) 10 mg PO Q6H PRN PRN Reason: Nausea And Vomiting Ondansetron HCl (Zofran) 4 mg IV Q8H PRN PRN Reason: N/V unrelieved by Reglan Oxycodone/Acetaminophen (Percocet 5/325) 1 tab PO Q6H PRN PRN Reason: Pain, Moderate (4-6) Last Admin: 02/25/17 08:31 Dose: 1 tab Promethazine HCl (Phenergan) 25 mg [place] Q6H PRN PRN Reason: Nausea And Vomiting Sodium Chloride (Sodium Chloride Flush Syringe 10 Ml) 10 ml IV PRN PRN PRN Reason: LINE FLUSH Physical Examination - Vital Signs Vital Signs: Vital Signs Temp Pulse BP Pulse Ox 98.3 F 83 189/111 99 02/24/17 14:25 02/24/17 14:25 02/24/17 14:25 02/24/17 14:25 Results - Laboratory Findings CBC and BMP: 02/24/17 14:15 02/24/17 14:15 Abnormal Lab Findings: Abnormal Labs 02/24/17 02/24/17 02/25/17 14:15 14:15 04:39 Hgb 15.5 H MCV 96 H MCH 33 H Lymph % (Auto) 50.6 H Seg Neutrophils % 38.8 L Glucose 183 H Triglycerides 158 H Cholesterol 233 H LDL Cholesterol Direct 159 H
[2017-02-27] MEDS: PLAVIX PO SCH (09:54)
[2017-02-27] MEDS: AUGMENTIN 875 MG PO SCH (09:54)
--- NOTE | 2017-02-27 16:17 | Discharge Summary ---
Providers - Providers Date of Admission: 02/24/17 16:28 Date of discharge: 02/27/17 Attending physician: LING PARKS 02/24/17 16:28 Occupational Therapy Evaluate and Treat [CONS] Routine Comment: Reason For Exam: Neuro deficits Physical Therapy Evaluation and Treat [CONS] Routine Comment: Reason For Exam: Neuro deficits 02/24/17 16:29 Speech Therapy Evaluation and Treat [CONS] Routine Reason For Exam: swallow eval 02/26/17 16:23 Consult to Physician [CONS] Routine Consulting Provider: APRIL RUIZ Reason For Exam: Ac CVA with Lt weakness/high-gr stenosis rt TRIMMER MACHINE Place consult to:: Sara Notified:: yes Phone number called:: [phone] Time called:: 18:00 Comment:: Dr Ruiz called back at 1803 to state that he is aware of consult Primary care physician: PLATE AND WELD INSPECTOR Hospitalization Reason for admission: left sided weakness Condition: Stable Pertinent studies: CT head without contrast; left MCA right TRIMMER MACHINE is somewhat hypodense possible acute thrombus Echocardiogram ; LV ejection fraction 55-60% , mild concentric LVH Carotid Doppler ; no hemodynamically significant stenosis , less than 50% stenosis noted MRI brain; acute/subacute nonhemorrhagic infarct involving right occipital lobe , [place] ,inferior left cerebellum ,minimal mass effect and no hemorrhage MRA; brain; high-grade stenosis right TRIMMER MACHINE Hospital course: 71-year-old male patient with multiple medical problems was admitted through emergency room with left-sided weakness Patient was not a candidate for TPA Patient was initially evaluated and admitted to the hospital and extensive new to workup Patient was evaluated by neurologist Consider physical therapy occupational therapy Medications optimized nutrition services manager have set up for subacute rehabilitation for further evaluation and management Date of discharge the patient was comfortable no new complaints Vital signs reviewed Physical examination stable Patient is hemodynamically and clinically stable for discharge and transfer to inpatient rehabilitation facility Discharge diagnosis; --Acute CVA --CVA with left weakness --Sinusitis; --Malignant hypertension; --Dyslipidemia; --Ongoing tobacco use; smoking cessation counseling done Disposition: [id number] Time spent for discharge: 32 min Core Measure Documentation - Palliative Care Palliative Care/ Comfort Measures: Not Applicable - Core Measures Any of the following diagnoses?: stroke - Stroke Discharge Requirements Statin for LDL = or >70 mg/dl on DC: Yes Anticoag for atrial fib/atrial flutter: Not Applicable (no A. fib or flutter) Reason for no anticoag for AF/F on DC: Not Indicated Antithrombotic for ischemic stroke: Yes Exam - Constitutional Vitals: Temp Pulse Resp BP Pulse Ox 97.9 F 93 H 18 173/94 92 02/27/17 08:47 02/27/17 08:47 02/27/17 08:47 02/27/17 08:47 02/27/17 08:47 General appearance: Present: no acute distress, well-nourished - EENT Eyes: Present: PERRL, EOM intact - Neck Neck: Present: supple, normal ROM - Respiratory Respiratory effort: normal Respiratory: bilateral: diminished, negative: rales, rhonchi, wheezing - Cardiovascular Rhythm: regular Heart Sounds: Present: S1 & S2 - Extremities Extremities: no ischemia, No edema - Abdominal General gastrointestinal: Present: soft, non-tender, non-distended, normal bowel sounds - Integumentary Integumentary: Present: clear, warm - Musculoskeletal Musculoskeletal: left sided weakness, other (CVA with left-sided weakness) - Psychiatric Psychiatric: appropriate mood/affect, cooperative - Neurologic Neurologic: other (left-sided weakness) Plan Activity: advance as tolerated, fall precautions Diet: other (cardiac diet) Special Instructions: physical therapy, occupational therapy Additional Instructions: fall precautions. smoking cessation Follow up with: PRIMARY CARE, [Primary Care Provider] - 3-5 Days APRIL RUIZ MD [Staff Physician] - 7 Days
[2017-02-27 20:47] VITALS: BP 182/98
[2017-02-27] MEDS: TYLENOL PO PRN (21:20)
[2017-02-28] MEDS ORDERED: ZESTRIL PO SCH (10:00)
== END 2017-02-27 21:30 | DRG 65 ==
LOC: ED 14:18 → 4A 16:28 → 3A 02-25 22:10
PROVIDERS: ADMIT Internal Medicine; ATTEND Internal Medicine
PROC: 3E0234Z Introduction of Serum, Toxoid and Vaccine into Muscle, Percutaneous Approach (ICD-10-PCS; principal; 2017-02-24)
DX: I63.9 Cerebral infarction, unspecified (principal); G81.94 Hemiplegia, unspecified affecting left nondominant side; I45.2 Bifascicular block; I10 Essential (primary) hypertension; E78.00 Pure hypercholesterolemia, unspecified; F17.210 Nicotine dependence, cigarettes, uncomplicated; J32.9 Chronic sinusitis, unspecified; Z79.899 Other long term (current) drug therapy; Z82.49 Family history of ischemic heart disease and other diseases of the circulatory system; Z71.6 Tobacco abuse counseling; Z23 Encounter for immunization
CPT/HCPCS: 36415; 70450; 70544; 70551; 71010; 80048; 80061; 80074; 80307; 81001; 82962; 83880; 84484; 85025; 85610; 85670; 85730; 90471; 90732; 93005; 93010; 93306; 93880; 94760; 96374; 96375; 96376; 99291; 99406; A9270-GY; G0009; G8978-GP; G8979-GP; G8987-GO; G8988-GO; G8996-GN; G8997-GN; G8998-GN; J0360; J2060; J2270